=== PATIENT | female | born 1985 | race American Indian/Alaskan Native ===

== ENCOUNTER 2017-09-23 09:22 | Emergency (ER) | payer OTHER ==
[2017-09-23 09:32] VITALS: TEMP 98; O2SAT 98; BMI 21.4
--- NOTE | 2017-09-23 09:41 | ED PDOC ---
Arrival/HPI - General Chief Complaint: Chest Pain Time Seen by Provider: 09/23/17 09:35 Historian: Patient - History of Present Illness Narrative History of Present Illness (Text): 09/23/17 09:38 32 year old female, on control medication, nkda, complaining of chest pain on and off x 1 month with no fall or trauma. Aching pain, no palpitation, no night sweat, stated that she has non-exertion chest pain as well which lasted couple minutes which been ongoing for over 1 month, no active chest pain , no palpitation, no rash, no night sweat, no recent traveling, no numbness or tingling, no back pain, no urinary or bowel incontinence or retention, no dizziness, non-smoker, no drug abuse, no family history of CAD or NV in early 30 -50s, no other medical or psychological complaints. Past Medical History - Provider Review Nursing Documentation Reviewed: Yes - Psychiatric Hx Substance Use: No - Surgical History Hx Section: Yes - Anesthesia Hx Anesthesia: No Family/Social History - Physician Review Nursing Documentation Reviewed: Yes Family/Social History: Unknown Family HX Smoking Status: Never Smoked Hx Alcohol Use: Yes Frequency of alcohol use: Socially Hx Substance Use: No Allergies/Home Meds Allergies/Adverse Reactions: Allergies No Known Allergies Allergy (Verified 09/23/17 09:32) Home Medications: Home Meds Medication Instructions Recorded Confirmed Norelgestromin/Ethin.estradiol 1 patch TOP QWK 09/23/17 09/23/17 [Xulane Patch] Review of Systems - Review of Systems Constitutional: absent: Fatigue, Fevers Eyes: absent: Vision Changes Respiratory: absent: SOB, Cough Cardiovascular: Chest Pain Gastrointestinal: absent: Abdominal Pain, Nausea, Vomiting Musculoskeletal: Myalgias. absent: Arthralgias, Back Pain Skin: absent: Rash, Pruritis Neurological: absent: Headache, Dizziness Hemo/Lymphatic: absent: Adenopathy Psychiatric: absent: Anxiety, Depression, Suicidal Ideation Physical Exam Vital Signs Reviewed: Yes Vital Signs Temp Pulse Resp BP Pulse Ox 09/23/17 13:03 64 18 118/74 98 09/23/17 11:23 69 18 121/79 98 09/23/17 09:30 98.0 F 71 16 123/84 98 Temperature: Afebrile Blood Pressure: Normal Pulse: Regular Respiratory Rate: Normal Appearance: Positive for: Well-Appearing, Non-Toxic, Comfortable Pain Distress: Mild Mental Status: Positive for: Alert and Oriented X 3 - Systems Exam Head: Present: Atraumatic, Normocephalic Pupils: Present: PERRL Extroacular Muscles: Present: EOMI Conjunctiva: Present: Normal Mouth: Present: Moist Mucous Membranes Neck: Present: Normal Range of Motion Respiratory/Chest: Present: Clear to Auscultation, Good Air Exchange. No: Respiratory Distress, Accessory Muscle Use, Wheezes, Decreased Breath Sounds, Rales, Retracting, Rhonchi, Tachypneic, Tender to Palpation Cardiovascular: Present: Regular Rate and Rhythm, Normal S1, S2, Peripheal Pulses Present, Other (no pedal edema). No: Murmurs, Tachycardic, Bradycardic, Rub, Gallop, Muffled Abdomen: Present: Normal Bowel Sounds. No: Tenderness, Distention, Peritoneal Signs, Rebound, Guarding Back: Present: Normal Inspection Upper Extremity: Present: Normal Inspection. No: Cyanosis, Edema Lower Extremity: Present: Normal Inspection, Normal ROM, Deformity, Capillary Refill < 2 s, Other (RLE: no tenderness or swelling, no deformity, +DPPT pulses , capillary refill< 2 seconds, neurovascular intact, walking with normal gait and posture. ). No: Edema Neurological: Present: GCS=15, CN II-XII Intact, Speech Normal, Motor Func Grossly Intact, Gait Normal, Memory Normal Skin: Present: Warm, Dry, Normal Color. No: Rashes Psychiatric: Present: Alert, Oriented x 3, Normal Insight, Normal Concentration Medical Decision Making ED Course and Treatment: 09/23/17 09:42 -labs/ua/uds -RLE venuous doppler -Chest X-ray -EKG -Tylenol 650mg po -observe and reassess 09/23/17 13:39 -Urine HCG is negative. -PERC is negative -HEART score is low, 1 point. -EKG: NSR @ 63 BPM, no ST elevation or depression, no T wave inversion, no previous ekg available for comparison. -RLE Venuous doppler: as per preliminary report, no acute DVT -Chest xray: no active disease -Labs show -Cardiac enzyme is within normal limit after 12 hours of onset -Thyroid profile is negative. -Urinalysis show no UTI -UDS show no acute findings -Pt. feels asymptomatic now, resting no the stretcher, smiling and talking on the cellphone, will discharge the patient. -Discharge home with naproxen, bed rest, follow up with your own pmd and glassie within 2 days for further evaluation and follow up, avoid gym/ exercise and energy drinks, return to the ER for any new or worsening signs or symptoms. - Lab Interpretations Lab Results: 09/23/17 09:40 09/23/17 10:25 Lab Results 09/23/17 10:25: Sodium 142, Potassium 3.6, Chloride 105, Carbon Dioxide 28, Anion Gap 13, BUN 12, Creatinine 0.6 L, Est GFR ( Amer) > 60, Est GFR ( Non-Af Amer) > 60, Random Glucose 83, Calcium 9.6, Total Bilirubin 0.9, AST 26, ALT 30, Alkaline Phosphatase 42, Lactate Dehydrogenase 376, Total Creatine Kinase 81, Troponin I 0.01, Total Protein 6.9, Albumin 4.0, Globulin 3.0, Albumin/Globulin Ratio 1.3, Lipase 37, Free T3 pg/mL Pending 09/23/17 10:15: Urine Opiates Screen Negative, Urine Methadone Screen Negative, Ur Barbiturates Screen Negative, Ur Phencyclidine Scrn Negative, Ur Amphetamines Screen Negative, U Benzodiazepines Scrn Negative, U Oth Cocaine Metabols Negative, U Cannabinoids Screen Negative 09/23/17 09:55: Urine Color Yellow, Urine Appearance Clear, Urine pH 6.0, Ur Specific [place] >= 1.030, Urine Protein Negative, Urine Glucose (UA) Negative, Urine Ketones Negative, Urine Blood Negative, Urine Nitrate Negative, Urine Bilirubin Negative, Urine Urobilinogen 0.2, Ur Leukocyte Esterase Negative 09/23/17 09:40: WBC 5.1, RBC 5.35, Hgb 13.1, Hct 37.8, MCV 70.7 L, MCH 24.5 L, MCHC 34.7, RDW 16.7 H, Plt Count 244, MPV 10.6, Gran % 62.7, Lymph % (Auto) 26.3 , [place] % (Auto) 7.3 H, Eos % (Auto) 3.5, Baso % (Auto) 0.2, Gran # 3.20, Lymph # (Auto) 1.3, [place] # (Auto) 0.4, Eos # (Auto) 0.2, Baso # (Auto) 0.01 09/23/17 09:40: Free T4 0.90, TSH 3rd Generation 2.03 - RAD Interpretation Radiology Orders: 09/23/17 09:36 CHEST PORTABLE [RAD] Stat DUPLEX LOWER EXTRM VEIN RIGHT [US] Stat Chest xray: HISTORY: medical clearance COMPARISON: No prior. FINDINGS: LUNGS: No active pulmonary disease. PLEURA: No significant pleural effusion identified, no pneumothorax apparent. CARDIOVASCULAR: Normal. OSSEOUS STRUCTURES: No significant abnormalities. VISUALIZED UPPER ABDOMEN: Normal. OTHER FINDINGS: None. IMPRESSION: No active disease. RLE Venuous Doppler: as per preliminary report, no acute DVT PROCEDURE: Right lower extremity venous US HISTORY: Leg pain and swelling. Evaluate for DVT. PHYSICIAN(S): Robin Juarez M.D. TECHNIQUE: Duplex sonography and color-flow Doppler with graded compression were used to evaluate the deep venous system of the right lower extremity. FINDINGS: The visualized deep venous system of the right lower extremity is sonographically normal and compressible. Normal waveforms and augmentation are seen. There is no sonographic evidence for deep venous thrombosis in the visualized segments of the right lower extremity. IMPRESSION: 1. No sonographic evidence for deep venous thrombosis in the visualized segments of the right lower extremity. Java Security Architect: Radiologist - EKG Interpretation EKG Interpretation (Text): 09/23/17 09:43 EKG: NSR @ 63 BPM, no ST elevation or depression, no T wave inversion, no previous ekg available for comparison. Interpreted by ED Physician: Yes Type: 12 lead EKG Comparison: No previous EKG avail. - Medication Orders Current Medication Orders: Discontinued Medications Acetaminophen (Tylenol 325mg Tab) 650 mg PO STAT STA Stop: 09/23/17 09:42 Last Admin: 09/23/17 10:11 Dose: 650 mg MAR Pain/Vitals Document 09/23/17 10:11 HP (Rec: 09/23/17 10:11 HP [id number]) Pain Reassessment Is This A Pain ReAssessment? No - PA / REGISTERED DIETETIC TECHNICIAN / Resident Statement MD/DO has reviewed & agrees with the documentation as recorded. Disposition/Present on Arrival - Present on Arrival Any Indicators Present on Arrival: No History of DVT/PE: No History of Uncontrolled Diabetes: No Urinary Catheter: No History of Decub. Ulcer: No History Surgical Site Infection Following: None - Disposition Have Diagnosis and Disposition been Completed?: Yes Diagnosis: Atypical chest pain, Leg pain Disposition: HOME/ ROUTINE Disposition Time: 11:32 Patient Plan: Discharge Patient Problems: Current Active Problems Problem Status Onset Atypical chest pain Acute Leg pain Acute Condition: IMPROVED Discharge Instructions (ExitCare): Chest Pain (ED) Additional Instructions: -Discharge home with naproxen, bed rest, follow up with your own pmd and glassie within 2 days for further evaluation and follow up, avoid gym/ exercise and energy drinks, return to the ER for any new or worsening signs or symptoms. Prescriptions: Naproxen 500 mg PO BID PRN #24 tablet PRN Reason: Other Referrals: David VILLA,PHILIP Chapman [Primary Care Provider] - Follow up with primary Jannie Duckworth MD [Medical Doctor] - Follow up with primary Forms: [employer] (I[place]ic), WORK NOTE
[2017-09-23 10:03] LABS: BASO # 0.01 K/mm3 (0.0-2.0); BASO % 0.2 % (0.0-3.0); EOS # 0.2 (0.0-0.7); EOS % 3.5 % (1.5-5.0); GRAN # 3.2 (1.4-6.5); GRAN % 62.7 % (50.0-68.0); HEMOGLOBIN 13.1 g/dL (12.0-16.0); LYMPH # 1.3 (1.2-3.4); LYMPH % 26.3 % (22.0-35.0); MEAN CELL VOLUME 70.7 fl (80.0-105.0); MEAN CORPUSCULAR HEMOGLOBIN 24.5 pg (25.0-35.0); MEAN CORPUSCULAR HGB CONC 34.7 g/dl (31.0-37.0); MEAN PLATELET VOLUME 10.6 fl (7.0-11.0); MONO # 0.4 (0.1-0.6); MONO % 7.3 % (1.0-6.0); RBC 5.35 10^6/uL (3.5-6.1); RED CELL DISTRIBUTION WIDTH 16.7 % (11.5-14.5); WHITE BLOOD COUNT 5.1 10^3/ul (4.5-11.0)
[2017-09-23 10:23] LABS: URINE BILIRUBIN NEGATIVE (NEGATIVE); URINE BLOOD NEGATIVE (NEGATIVE); URINE GLUCOSE (UA) NEGATIVE (NEGATIVE); URINE LEUKOCYTE ESTERASE NEGATIVE Leu/uL (NEGATIVE); URINE PROTEIN NEGATIVE mg/dL (<30 mg/dL); URINE UROBILINOGEN 0.2 E.U./dL (<1 E.U./dL)
[2017-09-23 10:26] LABS: URINE APPEARANCE CLEAR (CLEAR); URINE COLOR YELLOW (YELLOW)
--- NOTE | 2017-09-23 10:57 | RAD ---
HISTORY: medical clearance COMPARISON: No prior. FINDINGS: LUNGS: No active pulmonary disease. PLEURA: No significant pleural effusion identified, no pneumothorax apparent. CARDIOVASCULAR: Normal. OSSEOUS STRUCTURES: No significant abnormalities. VISUALIZED UPPER ABDOMEN: Normal. OTHER FINDINGS: None. IMPRESSION: No active disease.
[2017-09-23 11:02] LABS: ALB/GLOB RATIO 1.3 (1.1-1.8); ALT/SGPT 30 U/L (7-56); AST/SGOT 26 U/L (14-36); BLOOD UREA NITROGEN 12 mg/dL (7-21); CALCIUM 9.6 mg/dL (8.4-10.5); GFR AFRICAN-AMERICAN > 60; GFR NON-AFRICAN AMERICAN > 60; LIPASE 37 U/L (23-300)
[2017-09-23 11:17] LABS: BARBITURATES, UR NEGATIVE (NEGATIVE); BENZODIAZEPINES, UR NEGATIVE (NEGATIVE); OPIATES, UR NEGATIVE (NEGATIVE); PHENCYCLIDINE, UR NEGATIVE (NEGATIVE)
--- NOTE | 2017-09-23 11:24 | US ---
PROCEDURE: Right lower extremity venous US HISTORY: Leg pain and swelling. Evaluate for DVT. PHYSICIAN(S): Robin Juarez M.D. TECHNIQUE: Duplex sonography and color-flow Doppler with graded compression were used to evaluate the deep venous system of the right lower extremity. FINDINGS: The visualized deep venous system of the right lower extremity is sonographically normal and compressible. Normal waveforms and augmentation are seen. There is no sonographic evidence for deep venous thrombosis in the visualized segments of the right lower extremity. IMPRESSION: 1. No sonographic evidence for deep venous thrombosis in the visualized segments of the right lower extremity.
[2017-09-23 11:38] LABS: TROPONIN I 0.01 ng/mL
[2017-09-23 13:14] LABS: FREE T4 0.9 ng/dL (0.78-2.19)
[2017-09-23 13:48] VITALS: BP 120/78; PULSE 66; RESP 16
--- NOTE | 2017-09-23 15:33 | CARD ---
APPROVED REPORT EKG Measurement Heart [id number] ID [id number] <Conclusion> Normal sinus rhythm with sinus arrhythmia Normal ECG
== END 2017-09-23 13:48 | disposition home or self-care (01) ==
LOC: ED 09:22
DX: R07.89 Other chest pain (principal); M79.604 Pain in right leg

== ENCOUNTER 2017-12-31 16:06 | Emergency (ER) | payer OTHER ==
[2017-12-31 17:24] VITALS: BMI 22.4
[2017-12-31] MEDS ORDERED: DiphenhydrAMINE 12.5 mg/5 ml LIQ UD (5 ml) PO STA (17:24)
--- NOTE | 2017-12-31 17:30 | ED PDOC ---
Arrival/HPI <EloiseSarkis - Last Filed: 12/31/17 20:49> - General Historian: Patient <Damon Hardwick Manuel - Last Filed: 01/01/18 18:48> - General Time Seen by Provider: 12/31/17 16:16 - History of Present Illness Narrative History of Present Illness (Text): 12/31/17 17:26 32yo female with no pmhx who present with few days history of frontal headache with associated nausea and photophobia. states she started getting the head intermittently beginning of this year, but have never seen a Doctor for it. States headache usually resolved after few days, but persisted this time. she states she took Tylenol at 1200 this after with very temporary relieve. Denies fever, neck pain, rash, URI symptoms, focal weakness, slurred speech, chest pain , trauma, any other complaint. (Damon Hardwick) Past Medical History - Provider Review Nursing Documentation Reviewed: Yes - Psychiatric Hx Substance Use: No - Surgical History Hx Section: Yes - Anesthesia Hx Anesthesia: No <Damon Hardwick - Last Filed: 01/01/18 18:48> Family/Social History - Physician Review Nursing Documentation Reviewed: Yes Family/Social History: Unknown Family HX Smoking Status: Never Smoked Hx Alcohol Use: No Hx Substance Use: No <Damon Hardwick Manuel - Last Filed: 01/01/18 18:48> Allergies/Home Meds <EloiseSarkis - Last Filed: 12/31/17 20:49> <Damon Hardwick A - Last Filed: 01/01/18 18:48> Allergies/Adverse Reactions: Allergies No Known Allergies Allergy (Verified 12/31/17 17:34) Home Medications: Home Meds Medication Instructions Recorded Confirmed Norelgestromin/Ethin.estradiol 1 patch TOP QWK 09/23/17 09/23/17 [Xulane Patch] Review of Systems - Physician Review All systems were reviewed & negative as marked: Yes - Review of Systems Constitutional: Normal Eyes: Normal ENT: Normal Respiratory: Normal Cardiovascular: Normal Gastrointestinal: Normal Genitourinary Female: Normal Musculoskeletal: Normal Skin: Normal Neurological: Headache. absent: Dizziness, Focal Weakness, Gait Changes, Speech Changes Endocrine: Normal Hemo/Lymphatic: Normal Psychiatric: Normal <Damon Hardwick - Last Filed: 01/01/18 18:48> Physical Exam Vital Signs Reviewed: Yes Temperature: Afebrile Blood Pressure: Normal Pulse: Regular Respiratory Rate: Normal Appearance: Positive for: Well-Appearing, Non-Toxic, Comfortable Pain Distress: None Mental Status: Positive for: Alert and Oriented X 3 - Systems Exam Head: Present: Atraumatic, Normocephalic Pupils: Present: PERRL Extroacular Muscles: Present: EOMI Conjunctiva: Present: Normal Mouth: Present: Moist Mucous Membranes Neck: Present: Normal Range of Motion Respiratory/Chest: Present: Clear to Auscultation, Good Air Exchange. No: Respiratory Distress, Accessory Muscle Use Cardiovascular: Present: Regular Rate and Rhythm, Normal S1, S2. No: Murmurs Abdomen: No: Tenderness, Distention, Peritoneal Signs Back: Present: Normal Inspection Upper Extremity: Present: Normal Inspection. No: Cyanosis, Edema Lower Extremity: Present: Normal Inspection. No: Edema Neurological: Present: GCS=15, CN II-XII Intact, Speech Normal, Motor Func Grossly Intact, Normal Sensory Function, Normal Cerebellar Funct, Norm Deep Tendon Reflexes, Gait Normal, Memory Normal, Normal 2Pt Descrimination, Other ( No focal neurological deficit) Skin: Present: Warm, Dry, Normal Color. No: Rashes Psychiatric: Present: Alert, Oriented x 3, Normal Insight, Normal Concentration <Damon Hardwick - Last Filed: 01/01/18 18:48> Vital Signs Temp Pulse Resp BP Pulse Ox 12/31/17 21:21 76 18 122/74 100 12/31/17 21:20 76 18 122/74 100 12/31/17 19:26 84 18 108/74 100 12/31/17 16:07 98.3 F 82 18 106/64 100 Medical Decision Making <Sarkis Navas - Last Filed: 12/31/17 20:49> <Damon Hardwick - Last Filed: 01/01/18 18:48> ED Course and Treatment: 01/01/18 18:47 PT was neurologically intact in ED. Her headache improved in ED with medication. she was ambulatory. Head CT - Negative Result was DW the pt. She was DC hoem with Ibuprofen and referred to a Neuro for outpt evaluation. (Damon Hardwick) - RAD Interpretation Radiology Orders: 12/31/17 17:24 HEAD W/O CONTRAST [CT] Stat - Medication Orders Current Medication Orders: Discontinued Medications Acetaminophen (Tylenol 325mg Tab) 650 mg PO STAT STA Stop: 12/31/17 17:25 Last Admin: 12/31/17 19:21 Dose: 650 mg MAR Pain/Vitals Document 12/31/17 19:21 EQ (Rec: 12/31/17 19:21 EQ [id number]) Pain Reassessment Is This A Pain ReAssessment? No Sleep Is patient sleeping during reassessment? No Presence of Pain Presence of Pain Yes Diphenhydramine HCl (Benadryl) 25 mg PO STAT STA Stop: 12/31/17 17:25 Last Admin: 12/31/17 19:22 Dose: 25 mg Metoclopramide HCl (Reglan) 10 mg PO STAT STA Stop: 12/31/17 17:25 Last Admin: 12/31/17 19:21 Dose: 10 mg - PA / LEAD RADIATION THERAPIST / Resident Statement / has reviewed & agrees with the documentation as recorded. / has examined the patient and agrees with the treatment plan. <Sarkis Navas - Last Filed: 12/31/17 20:49> Disposition/Present on Arrival <Sarkis Navas - Last Filed: 12/31/17 20:49> - Present on Arrival Any Indicators Present on Arrival: No History of DVT/PE: No History of Uncontrolled Diabetes: No Urinary Catheter: No History Surgical Site Infection Following: None - Disposition Have Diagnosis and Disposition been Completed?: Yes Disposition Time: 21:30 Patient Plan: Discharge <Damon Hardwick - Last Filed: 01/01/18 18:48> - Disposition Diagnosis: Headache Disposition: HOME/ ROUTINE Condition: STABLE Discharge Instructions (ExitCare): Headache, Adult (DC) Additional Instructions: Follow up with your doctor/Neurologist Return to ED for any new or worsening symptoms Prescriptions: Ibuprofen [Motrin Tab] 600 mg PO Q6 #15 tab Referrals: Andi Wei MD [Staff Provider] - Follow up with primary Forms: [employer] (Ukrainian)
[2017-12-31 19:27] VITALS: RESP 18; TEMP 98.3; O2SAT 100
--- NOTE | 2017-12-31 20:52 | CT ---
EXAM: CT Head Without Intravenous Contrast EXAM DATE/TIME: 12/31/2017 5:24 PM CLINICAL HISTORY: 32 years old, female; Pain; Headache; Headache not specified TECHNIQUE: Axial computed tomography images of the head/brain without intravenous contrast. All CT scans at this facility use at least one of these dose optimization techniques: automated exposure control; mA and/or kV adjustment per patient size (includes targeted exams where dose is matched to clinical indication); or iterative reconstruction. Coronal and sagittal reformatted images were created and reviewed. COMPARISON: There are no prior studies for comparison. FINDINGS: Brain and ventricles: Ventricles are normal in size and configuration. There is no midline shift. There are no intra-axial or extra-axial mass lesions or areas of hemorrhage. There are no abnormal fluid collections. Gonzales-white differentiation is maintained. Bones: Cranial vault is intact. Soft tissues: unremarkable Sinuses: There is no acute sinusitis. Ears and mastoids: Middle ears and mastoids are unremarkable Orbits: Orbital contents are unremarkable. IMPRESSION: No acute intracranial abnormality
[2017-12-31 21:20] VITALS: BP 122/74; PULSE 76
== END 2017-12-31 21:21 | disposition home or self-care (01) ==
LOC: ED 16:06
DX: R51 Headache (principal)